=== PATIENT | male | born 1985 | race Two or more races ===

== ENCOUNTER → 2025-04-28 | Outpatient (CLI) | payer MEDICAID, SELFPAY ==
--- NOTE | 2025-04-28 10:30 | XR_ITS ---
EXAMINATION: Transrectal prostate sonography TECHNIQUE: Grayscale transrectal sonographic images prostate Date and time: April 28, 2025, 10:42 a.m. INDICATIONS: Urinary hesitancy, difficulty urinating months. FINDINGS: Prostate 4.1 x 2.0 x 3.1 cm volume 13 cc Multiple calcifications Note prostate nodules IMPRESSION: No prostate nodules
== END | disposition home or self-care (01) ==
PROVIDERS: PCP Nurse Practitioner Family; Referring Provider Nurse Practitioner Family; Visit Provider Nurse Practitioner Family
DX: R39.11 Hesitancy of micturition (principal)
CPT/HCPCS: 76872